=== PATIENT | male | born 1950 | race Caucasian/White ===

== ENCOUNTER → 2018-03-10 | Outpatient (CLI) | payer MEDICARE ==
--- NOTE | 2018-03-10 10:09 | Diagnostic Imaging Report ---
PROCEDURE: MRI lumbar spine. TECHNIQUE: Multiplanar, multisequence MRI of the lumbar spine was performed without contrast. INDICATION: Low back pain and right buttock pain and burning sensation for one week. Patient has prior history of lumbar spine surgery 3-1/2 years ago. COMPARISON: Correlation is made with presurgical MRI from 06/15/2015. FINDINGS: Since prior exam, patient has undergone lumbar spine surgery. There appears to be postop changes of posterior instrumented fusion with vertical stabilization rods and bipedicular screws transfixing the L4-L5 level. Intervertebral device at L4-L5 level is also seen. Vertebral body heights are maintained. Marrow signal intensity is normal. No acute compression fracture is detected. No geographic marrow lesion is seen. There is some generalized degenerative disc disease with desiccation noted. Mild disc space narrowing at L3-L4 level is similar to prior study. The conus is unremarkable at the T12-L1 level. T12-L1: No central canal or neuroforaminal stenosis is identified. L1-L2: Unremarkable. L2-L3: Unremarkable. L3-L4: Ligamentous thickening is present. In addition, there is a wide-based midline disc bulge which extends slightly caudal, posterior to the L4 vertebral body. This indents the ventral thecal sac and produces moderate central canal stenosis. There is also mild bilateral neuroforaminal stenosis. L4-L5: Central canal is widely patent. The neural foramina are patent. L5-S1: Central canal is patent. There appears to be a small synovial cyst arising from the right facet approximately 5-6 mm in size. This does likely result in right lateral recess and mild right neuroforaminal narrowing. Left neural foramen is patent. Paraspinous tissues are unremarkable. IMPRESSION: 1. Postop changes of posterior instrumented fusion at L4-L5 level. 2. Wide-based midline disc bulge at L3-L4 level as well as ligamentous thickening and facet changes resulting in moderate central canal stenosis. There is also bilateral lateral recess and neuroforaminal stenosis. 3. Findings consistent with small synovial cyst arising from right-sided facets at the L5-S1 level resulting in right lateral recess and moderate right neuroforaminal narrowing. Dictated by: Dictated on workstation # [id number]
== END ==
LOC: RAD 08:50
PROVIDERS: ATTEND Physician Assistant
DX: M48.061 Spinal stenosis, lumbar region without neurogenic claudication (principal); M51.16 Intervertebral disc disorders with radiculopathy, lumbar region; M99.73 Connective tissue and disc stenosis of intervertebral foramina of lumbar region; Z98.1 Arthrodesis status
CPT/HCPCS: 72148

== ENCOUNTER → 2021-07-23 | Outpatient (CLI) | payer MEDICARE, OTHER ==
--- NOTE | 2021-07-23 09:56 | Diagnostic Imaging Report ---
PROCEDURE: MRI lumbar spine. TECHNIQUE: Multiplanar, multisequence MRI of the lumbar spine was performed without contrast. INDICATION: Chronic back pain, previous lumbar instrumentation. Compared with lumbar MRI 03/10/2018. Posterior and interbody fusion at L4-L5 is unchanged from the previous exam. The alignment across, above and below the fusion is stable and anatomic. The lumbar marrow signal intensity unremarkable. There are some metallic artifacts of the L4-L5 marrow peripheral to the pedicular screws. No paravertebral mass, hemorrhage or fluid collection. Above the fusion at L3-L4, there is diffuse disc bulge, facet arthrosis, thickened ligamenta flava, those findings have progressed with increased now severe central canal stenosis with moderate to severe right and moderate to severe left foraminal narrowing. At L2-L3 and L1-L2 there is mild spondylosis with predominantly anterior osteophyte disc material with unchanged mild biforaminal stenosis. No acute appearing abnormality. IMPRESSION: 1. Stable L4-L5 fusion, progressive spondylosis and facet arthrosis at L3-L4 where there is increased central canal and biforaminal stenoses moderate to severe at today's study. 2. No fluid collection, marrow edema or acute-appearing bony abnormality. Dictated by: Dictated on workstation # [id number]
== END ==
LOC: RAD 08:00
PROVIDERS: ATTEND Physician Assistant
DX: M47.26 Other spondylosis with radiculopathy, lumbar region (principal); M48.061 Spinal stenosis, lumbar region without neurogenic claudication; Z98.1 Arthrodesis status
CPT/HCPCS: 72148